=== PATIENT | female | born 1980 | race African-American/Black ===

== ENCOUNTER 2022-10-23 02:05 | Emergency (ER) | payer OTHER ==
[~2022-10-23] VITALS: Ht 175.3 cm; Wt 77.1 kg
[~2022-10-23 02:05] MED LIST: AZIT500T66 PO; LIDO2SOL26 MT
[2022-10-23 03:24] VITALS: BP 128/60
[2022-10-23] MEDS ORDERED: KETOROLAC TROMETH 60MG/2ML VIAL IM ONE (06:45)
[2022-10-23] MEDS ORDERED: IBUP-1456 PO (07:42)
[2022-10-23] MEDS ORDERED: METH-1182 PO (07:42)
== END 2022-10-23 07:49 | disposition home or self-care (01) ==
LOC: ER 02:05
DX: S16.1XXA Strain of muscle, fascia and tendon at neck level, initial encounter (principal); S39.012A Strain of muscle, fascia and tendon of lower back, initial encounter; S46.912A Strain of unspecified muscle, fascia and tendon at shoulder and upper arm level, left arm, initial encounter; S70.12XA Contusion of left thigh, initial encounter; V43.52XA Car driver injured in collision with other type car in traffic accident, initial encounter; Y93.89 Activity, other specified; Y92.89 Other specified places as the place of occurrence of the external cause; Y99.8 Other external cause status
CPT/HCPCS: 72040; 72100; 73030; 96372; 99284; J1885

== ENCOUNTER 2023-01-22 11:53 | Emergency (ER) | payer OTHER ==
[~2023-01-22] VITALS: Ht 167.6 cm; Wt 121.3 kg
[~2023-01-22 11:53] MED LIST changes: +IBUP-1456 PO; +METH-1182 PO
[2023-01-22 12:00] VITALS: BP 108/64; PULSE 94; RESP 18; TEMP 99.5; O2SAT 99
[2023-01-22] MEDS ORDERED: BACDST PO (14:02)
[2023-01-22] MEDS ORDERED: MUPI2OIN2 EX (14:02)
== END 2023-01-22 14:12 | disposition home or self-care (01) ==
LOC: ER 11:53
DX: N61.1 Abscess of the breast and nipple (principal); F17.210 Nicotine dependence, cigarettes, uncomplicated; Z79.1 Long term (current) use of non-steroidal anti-inflammatories (NSAID); Z79.899 Other long term (current) drug therapy; Z79.2 Long term (current) use of antibiotics